=== PATIENT | male | born 1945 | race Caucasian/White ===

== ENCOUNTER 2016-12-05 11:11 | Emergency (ER) | payer MEDICARE, OTHER ==
[~2016-12-05] VITALS: Ht 182.9 cm; Wt 97.5 kg
[2016-12-05] MEDS ORDERED: ATORVASTATIN CA40 MG PO (11:24)
[2016-12-05] MEDS ORDERED: FLOMAX0.4 MG PO (13:54)
[2016-12-05] MEDS ORDERED: NORCO 7.5-3251 EACH PO (13:54)
== END 2016-12-05 14:10 | disposition home or self-care (01) ==
LOC: ED 11:11
DX: N20.0 Calculus of kidney (principal); R11.10 Vomiting, unspecified
CPT/HCPCS: 74176; 80053; 81001; 85025; 96361; 96374; 96375; 96376; 99284; J1885; J2405; J7030

== ENCOUNTER 2016-12-06 22:03 | Emergency (ER) | payer MEDICARE, OTHER ==
[~2016-12-06] VITALS: Ht 182.9 cm; Wt 97.5 kg
[~2016-12-06 22:03] MED LIST: ATORVASTATIN CA40 MG PO; FLOMAX0.4 MG PO; NORCO 7.5-3251 EACH PO
[2016-12-07] MEDS ORDERED: CEPHALEXIN500 MG PO (00:16)
== END 2016-12-07 00:22 | disposition home or self-care (01) ==
LOC: ED 22:03
DX: N20.1 Calculus of ureter (principal); Z87.442 Personal history of urinary calculi; E78.5 Hyperlipidemia, unspecified; Z79.891 Long term (current) use of opiate analgesic; Z79.899 Other long term (current) drug therapy; Z90.49 Acquired absence of other specified parts of digestive tract
CPT/HCPCS: 80048; 81001; 85025; 87088; 96374; 96375; 99283; J0696; J1885; J7030

== ENCOUNTER 2017-08-05 06:30 | Day surgery (SDC) | payer MEDICARE, OTHER ==
[~2017-08-05] VITALS: Ht 182.9 cm; Wt 102.1 kg
[~2017-08-05 06:30] MED LIST changes: +CEPHALEXIN500 MG PO
--- NOTE | 2017-08-05 08:48 | NUR ---
08/05/17 0848 Melida Blair 0844 PATIENT ARRIVES SLEEPING, BUT AWAKENS WITH VERBAL STIMULI, ASKS QUESTIONS APPROPRIATELY, THEN BACK TO SLEEP. ARRIVES TO PACU ON 3 LITERS, OXYGEN OFF AFTER ARRIVAL. PATIENT DENIES PAIN OR NAUSEA.
--- NOTE | 2017-08-05 13:13 | NUR ---
CONNECTED MAISHA LAONSO[facility]. SHE SEEMED TO BE FAIRLY COMFORTABLE WITH EGD AND SCOPE TODAY. EXTENDED A BLESSING, WILL FOLLOW NEEDED
--- NOTE | 2017-08-11 14:12 | OR ---
[facility] [address], [place] [address] Signed DATE OF OPERATION: 08/05/2017 SURGEON: Filipe Saldaña MD PREOPERATIVE DIAGNOSES: 1. Family history of esophageal cancer (mother). 2. Family history of colon cancer (mother). POSTOPERATIVE DIAGNOSES: 1. Distal esophagitis without Sherwood's epithelium; duodenitis, moderately severe. No evidence of ulcer. 2. Minimal diverticula of sigmoid and tangentially apparent polyp at 40 cm. PROCEDURES: 1. Esophagogastroduodenoscopy with biopsy. 2. Total colonoscopy to cecum. ANESTHESIA: Intravenous sedation, fentanyl 125 mcg, Versed 6 mg. INDICATION: This 72-year-old white man is a patient Dr. Avelar. He has a family history of esophageal and colon cancer in his mother, who has a long past. He is having some epigastric pain, but no dysphagia. He last underwent colonoscopy in 2005, which was normal. He is admitted at this time to undergo upper endoscopy and colonoscopy. Understand the risks of bleeding, infection, and perforation. FINDINGS: On upper endoscopy, he did have distal esophagitis, but no evidence of Sherwood's esophagus. He had moderately severe duodenitis, but no ulcer. CLOtest was negative 15 minutes postprocedure. On colonoscopy, the prep was quite excellent. There are few scattered diverticula of the sigmoid and a tangentially apparent polyp at 40 cm, which likely was hyperplastic, but with great effort simply could not be re-established for biopsy. I doubt that it was a suction polyp that is a possibility as well. There were no other findings of concern in the colon. DESCRIPTION OF PROCEDURE: The patient was brought to the endoscopy suite and placed in lateral decubitus position Electronically Signed By: FILIPE SALDAÑA MD 08/11/17 1412 PATIENT NAME: DALTON HOLLAND OPERATIVE REPORT DATE OF : 47 REPORT #: [id number] PHYSICIAN: FILIPE SALDAÑA MD PCP: Mandi AVELAR MD REPORT IS CONFIDENTIAL AND NOT TO BE RELEASED WITHOUT AUTHORIZATION [facility] [address] [place], [place] [address] Signed after undergoing topical Hurricaine spray hypopharyngeal anesthesia. Given intravenous sedation to the point of slurred speech and nystagmus. A bite block was placed. An Olympus video upper endoscope was passed in the hypopharynx. The vocal cords were normal. Scope was advanced to the esophagus without problem. Throughout its length, it was normal except the distal portion where there was mild chronic inflammatory change. There were no varices or Sherwood's epithelium. Narrow band imaging confirmed this as well. Scope was advanced to the stomach, which was insufflated with air. Rugal folds were normal. The antrum showed no significant inflammation, certainly no ulcer. The pylorus was normal. Scope was passed through into the duodenum. Relatively significant duodenitis was noted in the bulbar and 2nd portions. There was no sign of ulceration. However. Biopsies were obtained there and scope was withdrawn to the antrum. Biopsies were taken for both TADEO and pathologic testing. Retroflexed view showed a relatively good flap valve and no proximal gastric abnormality. CLOtest biopsies were taken as well. The scope was withdrawn to the distal esophagus. Multiple biopsies taken there. There was no evidence of Sherwood's epithelium or neoplasm or stricture. The scope was withdrawn. Midesophageal biopsies were also obtained. The scope was removed. The table was rotated and additional sedation given. Digital rectal examination showed no anorectal abnormality. An Olympus video colonoscope was passed in the rectum and manipulated into the colon. In the midsigmoid where a few scattered diverticula, but also appeared to be a very small polyp probably hyperplastic. The scope was advanced beyond this noting the position of the polyp to be about 40 cm. Scope was ultimately advanced to the cecum without problem. The ileocecal valve and appendiceal orifice were normal. Scope was withdrawn from that point, showing no sign of abnormality other than a few scattered diverticula of the left colon. In the region of 40 cm, considerable effort was taken to identify once again the polyp that was originally noted despite its small size and an oculus appearance. There was tangentially seen and readied for cold morcellation polypectomy, however, was once again not seen and after extensive efforts of reintroduction of the scope and so forth simply could not be found for excision. Most likely of hyperplastic polyp and certainly was quite small. The scope was further withdrawn and retroflexed view was normal. The scope was straightened, withdrawn and removed. CONCLUSION DIAGNOSES: 1. Esophagitis and duodenitis. 2. Tangentially appearing probably hyperplastic polyp at 40 cm. 3. Minimal diverticula. PLAN: Recommend Prilosec 20 mg p.o. daily. We will see him back in 6 to 8 weeks and assess Electronically Signed By: FILIPE SALDAÑA MD 08/11/17 1412 PATIENT NAME: DALTON HOLLAND OPERATIVE REPORT DATE OF : 47 REPORT #: [id number] PHYSICIAN: FILIPE SALDAÑA MD PCP: Mandi AVELAR MD REPORT IS CONFIDENTIAL AND NOT TO BE RELEASED WITHOUT AUTHORIZATION [address] [address] Signed the symptoms and pathology reports. As regard to the colonic polyps, I would recommend repeat colonoscopy in 3 years, sooner if there are symptoms. MD CRICKET Petersen/MODL /[id number] cc: Mandi Avelar MD Copies: Mandi AVELAR MD ~ Electronically Signed By: FILIPE SALDAÑA MD 08/11/17 1412 PATIENT NAME: DALTON HOLLAND OPERATIVE REPORT DATE OF : 47 REPORT #: [id number] PHYSICIAN: FILIPE SALDAÑA MD PCP: Mandi AVELAR MD REPORT IS CONFIDENTIAL AND NOT TO BE RELEASED WITHOUT AUTHORIZATION
== END 2017-08-05 09:25 | disposition home or self-care (01) ==
LOC: DS 06:30 → OPS 06:30 → DS 06:45 → OPS 06:45
PROVIDERS: Surgery
PROC: 0DB78ZX Excision of Stomach, Pylorus, Via Natural or Artificial Opening Endoscopic, Diagnostic (ICD-10-PCS; 2017-08-05)
PROC: 0DB28ZX Excision of Middle Esophagus, Via Natural or Artificial Opening Endoscopic, Diagnostic (ICD-10-PCS; 2017-08-05)
PROC: 0DB38ZX Excision of Lower Esophagus, Via Natural or Artificial Opening Endoscopic, Diagnostic (ICD-10-PCS; 2017-08-05)
PROC: 0DJD8ZZ Inspection of Lower Intestinal Tract, Via Natural or Artificial Opening Endoscopic (ICD-10-PCS; principal; 2017-08-05 06:45)
PROC: 0DB98ZX Excision of Duodenum, Via Natural or Artificial Opening Endoscopic, Diagnostic (ICD-10-PCS; 2017-08-05 06:45)
DX: Z12.11 Encounter for screening for malignant neoplasm of colon (principal); K57.30 Diverticulosis of large intestine without perforation or abscess without bleeding; K63.5 Polyp of colon; K29.80 Duodenitis without bleeding; K29.50 Unspecified chronic gastritis without bleeding; K21.0 Gastro-esophageal reflux disease with esophagitis; I10 Essential (primary) hypertension; Z80.0 Family history of malignant neoplasm of digestive organs; Z98.890 Other specified postprocedural states; Z87.442 Personal history of urinary calculi; Z90.49 Acquired absence of other specified parts of digestive tract
CPT/HCPCS: 88305; 88342; 99153; G0500; J2250; J3010; J7120

== ENCOUNTER 2022-02-09 07:54 | Day surgery (SDC) | payer MEDICARE, BC ==
[~2022-02-09] VITALS: Ht 182.9 cm; Wt 97.7 kg
[~2022-02-09 07:54] MED LIST changes: +OSTERA TABLET1 EACH PO; +PEPCID40 MG
[2022-02-09] MEDS ORDERED: IBUPROFEN600 MG PO (10:32)
[2022-02-09] MEDS ORDERED: OXYCODON-ACETA1 EAC2 PO (10:33)
[2022-02-09] MEDS ORDERED: ACETAMINOPHEN500 MG PO (10:33)
--- NOTE | 2022-02-09 11:12 | NUR ---
02/09/22 1112 She [facility]chant 1017 PT ARRIVED IN PACU AWAKE WITH NO C/O'S. 1030 DR AT BEDSIDE. ALL QUESTIONS ANSWERED. 1045 DC INSTRUCTIONS GIVEN. 1052 LEFT VIA W/C.
--- NOTE | 2022-02-11 14:15 | OR ---
[facility] [address] [place], [place] [address] Signed DATE OF OPERATION: 02/09/2022 SURGEON: Filipe Saldaña MD PREOPERATIVE DIAGNOSIS: Symptomatic soft tissue mass, right posterolateral thorax. 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 PROCEDURE: Excision of right posterior thorax submuscular soft tissue mass (lipoma). ANESTHESIA: Local with monitored anesthesia care, Dakota Davis CRNA. Local anesthetic, 14 mL of 0.25% Marcaine with epinephrine. INDICATION: This 76-year-old white man is a patient of Dr. Dickey. He is noted to have a right posterolateral thorax soft tissue mass which is increasingly uncomfortable for him. It is palpable and highly suggestive of a lipoma but may well be deep and on that basis excision in the operating room setting is deemed advisable. The risk of bleeding, infection, cosmetic deformity, need for additional treatment and so forth were all reviewed with him. He understands and wished to proceed. FINDINGS: The soft tissue mass was in the right posterior thorax in the lateral aspect and found to be a submuscular lipomatous mass. The muscle fibers of the latissimus dorsi were covering the mass and once those fibers were , the lipomatous mass could be excised and measured approximately 6 cm. There were no other abnormalities and it did not appear malignant in any way. DESCRIPTION OF PROCEDURE: The patient was brought to the operating room, placed in the lateral position left side down. Careful padding of all pressure points. The right posterolateral area was prepared with a chlorhexidine solution and draped sterilely. He was given intravenous sedation by the medical receptionist assistant. The ballotable mass was easily identified and local anesthetic was then injected along the line of skin tension obliquely on the posterior thorax. An incision was made along the line of skin tension. Dissection carried through the dermis with electrocautery. The capsule indicating the superficial fascia Electronically Signed By: FILIPE SALDAÑA MD 02/11/22 1415 PATIENT NAME: DALTON HOLLAND OPERATIVE REPORT DATE OF : 47 REPORT #: [id number] PHYSICIAN: FILIPE SALDAÑA MD PCP: ANGÉLICA DICKEY MD REPORT IS CONFIDENTIAL AND NOT TO BE RELEASED WITHOUT AUTHORIZATION [facility] [address] [place], [place] [address] Signed was incised and beneath that was the latissimus dorsi muscle. The muscle itself covered the soft tissue mass which appeared to be a lipoma intercalated between the fibers of the latissimus dorsi. Those muscle fibers were with blunt electrocautery dissection and the lipomatous mass shelled out. It measured approximately 6 cm. The muscular edges and fascia were reapproximated with interrupted 2-0 Vicryl suture. The subcutaneous layer was reapproximated with interrupted 2-0 Vicryl and skin closed with running subcuticular 3-0 Vicryl. Steri-Strips were applied as was an Acticoat dressing. The patient tolerated the procedure well, was placed into the supine position and taken to the recovery room in good condition having suffered no complications. Sponge, needle, and instrument counts were reported as correct x3. Filipe Saldaña MD JM/MODL /[id number] cc: Angélica Dickey MD Copies: ~ Electronically Signed By: FILIPE SALDAÑA MD 02/11/22 1415 PATIENT NAME: DALTON HOLLAND OPERATIVE REPORT DATE OF : 47 REPORT #: [id number] PHYSICIAN: FILIPE SALDAÑA MD PCP: ANGÉLICA DICKEY MD REPORT IS CONFIDENTIAL AND NOT TO BE RELEASED WITHOUT AUTHORIZATION
--- NOTE | 2022-02-12 16:18 | PATH ---
[facility] [address] [facility] [place], [place] [address] Signed SPECIMEN(S): A SUB MUSCULAR POSTERIOR THORAX SPECIMEN SOURCE: A. SUB MUSCULAR POSTERIOR THORAX CLINICAL HISTORY: Excision soft tissue mass. FINAL PATHOLOGIC DIAGNOSIS: Submuscular posterior thorax, lipoma: - Lipoma. COMMENT: The specimen consists of benign adipose tissue consistent with a lipoma. Atypical features are not seen. TWK:candi:C2NR MICROSCOPIC EXAMINATION: Histologic sections of all submitted blocks are examined by light microscopy. These findings, together with the gross examination, support the pathologic diagnosis. GROSS DESCRIPTION: The specimen, labeled "ELISABETH, A," and designated on the requisition "submuscular posterior thoracic lipoma," is received in formalin and consists of a thinly encapsulated, irregularly shaped, yellow lobulated, unoriented 14.0 g, 5.4 x 3.8 x 2.2 cm, rubbery tissue mass. The external surface is inked blue and the specimen is cross-sectioned to reveal yellow, homogenous, grossly unremarkable tissue without a discrete mass/lesion. Residential Care Officer sections are submitted in three cassettes (A1-A3). AI (under the direct supervision of a pathologist) The Gross Description was prepared using a voice recognition system. The report was reviewed for accuracy; however, sound-alike word errors, addition and/or deletions may occur. If there is any question about this report, please contact Client Services. PERFORMING LABORATORY: The technical component was performed by [facility], [address] [place] [id number] (CLIA# [id number]). The professional interpretation was performed by [facility] PATIENT NAME: DALTON HOLLAND PATHOLOGY DATE OF : 47 REPORT #: [id number] PHYSICIAN: [facility] PCP: MAKI RODRIGUEZ MD REPORT IS CONFIDENTIAL AND NOT TO BE RELEASED WITHOUT AUTHORIZATION [facility] [address] [place], [place] [address] Signed [place] [address] [place] [id number] (CLIA#: [id number]). Diagnostician: Vignesh Oliva MD Pathologist Electronically Signed 02/12/2022 Copies: ~ PATIENT NAME: DALTON HOLLAND PATHOLOGY DATE OF : 47 REPORT #: [id number] PHYSICIAN: [facility] PCP: MAKI RODRIGUEZ MD REPORT IS CONFIDENTIAL AND NOT TO BE RELEASED WITHOUT AUTHORIZATION
== END 2022-02-09 10:52 | disposition home or self-care (01) ==
LOC: DS 07:54
PROVIDERS: ATTEND Surgery
PROC: 0KBF0ZZ Excision of Right Trunk Muscle, Open Approach (ICD-10-PCS; principal; 2022-02-09 09:00)
DX: D17.9 Benign lipomatous neoplasm, unspecified (principal); E78.5 Hyperlipidemia, unspecified; I10 Essential (primary) hypertension; Z86.010 Personal history of colon polyps
CPT/HCPCS: 00300; J0131; J0690; J1644; J2001; J2405; J2704; J3010; J7121

== ENCOUNTER 2023-03-23 18:38 | Emergency (ER) | payer OTHER, MEDICARE, BC ==
[~2023-03-23] VITALS: Ht 182.9 cm; Wt 97.5 kg
[~2023-03-23 18:38] MED LIST changes: +ACETAMINOPHEN500 MG PO; +IBUPROFEN600 MG PO; +OXYCODON-ACETA1 EAC2 PO
[2023-03-23] MEDS ORDERED: ASPIRIN81 MG (21:11)
[2023-03-23] MEDS ORDERED: CEPHALEXIN500 M1 PO (22:46)
[2023-03-23 23:45] VITALS: BP 159/100
== END 2023-03-23 23:46 | disposition home or self-care (01) ==
LOC: ED 18:38
DX: S61.411A Laceration without foreign body of right hand, initial encounter (principal); S81.811A Laceration without foreign body, right lower leg, initial encounter; W01.0XXA Fall on same level from slipping, tripping and stumbling without subsequent striking against object, initial encounter; E78.5 Hyperlipidemia, unspecified; Z79.899 Other long term (current) drug therapy; Z23 Encounter for immunization
CPT/HCPCS: 12002; 90471; 90715; 99282-25; A9270